=== PATIENT | male | born 1965 | race Caucasian/White ===

== ENCOUNTER 2025-02-02 00:13 | Day surgery (SDC) | payer BC, SELFPAY ==
[2025-01-19 11:43] VITALS: BMI 27.1
--- OUTSIDE RECORDS SUMMARY | 2025-02-02 00:15 | XMS_ITS | Clinical Summary ---
Author Organization [facility] Address [address] [place] [address] Care Team Providers Care Revolving Field Assembler Name Role Phone Rimma Dumont NP Primary Care Provider [phone] Allergies No known active allergies Medications ibuprofen (ADVIL,MOTRIN) 800 mg tablet Take 1 tablet (800 mg total) by mouth 3 (three) times a day as needed for pain. Take with food. 30 tablet 8 Active Additional Information Patient not taking.Reported on 08/28/2024 multivitamin with minerals tablet Take 1 tablet by mouth daily Active coenzyme Q10 10 mg capsule Take 1 capsule (10 mg total) by mouth daily Active calcium carb-magnesium carb 250-300 mg tablet Take by mouth Active Active Problems No known active problems Encounters Date Type Department Care Team Description 12/19/2024 Orders Only [facility] Primary Care at [address] [address] ProviderAdelaida MD from Last 3 Months Immunizations Immunization Administration Dates Next Due Tdap 08/28/2024 Surgical History Surgery Date Site/Laterality Comments APPENDECTOMY APPENDECTOMY 05/07/1992 - 05/06/1993 Medical History Medical History Date Comments Wears glasses Cat scratch fever Family History Medical History Relation Name Comments Diabetes Cousin Alzheimer's disease Father Colon cancer Maternal Grandfather Cancer Maternal Grandmother No Known Problems Mother Alzheimer's disease Paternal Grandfather Relation Name Status Comments Cousin Father Maternal Grandfather Maternal Grandmother Mother Alive Other paternal grandfather Paternal Grandfather Social History Tobacco Use Types Packs/Day Years Used Date Smoking Tobacco: Former Cigarettes Smokeless Tobacco: Former Alcohol Use Standard Drinks/Week Comments Yes 0 (1 standard drink = 0.6 oz pur e alcohol) PHQ-2 Answer Date Recorded PHQ-2 Total Score (If total score is 3 or more points, staff should administer the PHQ-9) 0 08/28/2024 Sex and Gender Information Value Date Recorded Sex Assigned at Not on file Legal Sex Male 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 Gender Identity Male 10/21/2024 4:53 PM CDT Sexual Orientation Straight 10/21/2024 4: 54 PM CDT Obstetrics History Last Filed Vital Signs Vital Sign Reading Time Taken Comments Blood Pressure 112/72 08/28/2024 10:32 AM CDT Pulse 69 08/28/2024 10:32 AM CDT Temperature 36.5 C (97.7 F) 08/28/2024 10:32 AM CDT Respiratory Rate 20 04/22/2024 9:06 AM TRUCK HOP Oxygen Saturation 97% 08/28/2024 10:32 AM CDT Inhaled Oxygen Concentration - - Weight 88.5 kg (195 lb) 08/28/2024 10:32 AM CDT Height 185.4 cm (6' 1) 08/28/2024 10:32 AM CDT Body Mass Index 25.73 08/28/2024 10:32 AM CDT Plan of Treatment Health Maintenance Due Date Last Done Comments Hepatitis B Screening 1983 Zoster Vaccine (1 of 2) 2015 Covid-19 Vaccine ( season) 2025 05/21/2021, 11/20/2020, 09/06/2020 Influenza Vaccine (#1) 2025 Depression Screening 08/28/2025 08/28/2024 Regular Well Visit/Exam 18-64 08/28/2025 08/28/2024 Colon Cancer Screening-Colonoscopy 05/12/2026 05/12/2016 Prostate Cancer Screening-PSA 08/28/2026 08/28/2024 DTaP/Tdap/Td Vaccine (2 - Td or Tdap) 08/28/2034 08/28/2024 Colon Cancer Screening-CT Colonography Discontinued 05/12/2016 Colon Cancer Screening-DNA Stool Discontinued 05/12/2016 Colon Cancer Screening-FIT Discontinued 05/12/2016 Colon Cancer Screening-Sigmoidoscopy Discontinued 05/12/2016 Hepatitis C Screening Completed 08/28/2024 Pneumococcal vaccine <65 Aged Out No longer eligible based on patient's age to complete this topic Procedures Procedure Name Priority Date/Time Associated Diagnosis Comments HEPATITIS C ANTIBODY Routine 08/28/2024 11:18 AM CDT Need for hepatitis C screening test PSA SCREEN Routine 08/28/2024 11:18 AM CDT Screening PSA (prostate specific antigen) HM COLONOSCOPY Routine 05/12/2016 1:17 PM TRUCK HOP from Last 3 Months or Most Recently Relevant to Health Maintenance Results * PSA screen (08/28/2024 11:18 AM CDT) PSA-Total 0.85 <=3.90 ng/mL Comment: Interpretive Data AGE SEX REFERENCE INTERVAL 0 minutes-150 years Female None 0 minutes-49 years Male None 50-59 years Male 0-3.90 60-69 years Male 0-5.40 70-79 years Male 0-6.20 80-150 years Male 0-6.20 The Hal PSA Total assay procedure was used. Results from different manufacturers or methods may not be comparable. Serial testing should be performed using the same method. Current interpretive data last revised 21. Blood 08/28/2024 11:1 8 AM CDT 08/28/2024 10:11 PM CDT Rimma Dumont SUPER[employer]ENDENT [employer] LAB BLOOD ORDERABLES Final Resul t [id number] [facility] [place] [address] * Hepatitis C antibody Blood (08/28/2024 11:18 AM CDT) Hep C Ab Nonreactive Nonreactive Comment: Interpretive Data Nonreactive: Antibodies to HCV not detected. Does NOT exclude the possibility of recent exposure to HCV. Equivocal: Equivocal for HCV antibodies. Supplemental molecular testing will be automatically performed to determine infection status in accordance with current CDC screening recommendations. Reactive: Positive for HCV antibodies. This may represent current or past HCV infection. Supplemental molecular testing will be automatically performed to determine current infection status in accordance with current CDC screening recommendations. Interpretive data was last revised on 2019. Blood 08/28/2024 11:1 8 AM CDT 08/28/2024 10:11 PM CDT Rimma Dumont NP LAB MICROBIOLOGY - GENERAL ORDER [place]ASHAY Final Result [id number] [facility] [place] [address] * HM COLONOSCOPY (05/12/2016 1:17 PM TRUCK HOP) Historical Provider HEALTH MAINTENANCE Edited Result - Final from Last 3 Months or Most Recently Relevant to Health Maintenance Insurance [employer] ACCESS CHOICE ANTHEM ACCESS CHOICE Care Teams Revolving Field Assembler Relationship Specialty Start Date End Date Rimma Dumont NP [address] [place] [address] PCP - General Family Medicine 08/28/24
[2025-02-02 06:15] VITALS: BMI 25.9
[2025-02-02 06:17] VITALS: BP 137/70; PULSE 61; RESP 18; TEMP 36.5; O2SAT 98
[2025-02-02] MEDS: LACTATED RINGERS 1,000 ML 150 ML IV CONT (06:24)
--- NOTE | 2025-02-02 07:20 | WPDANESEPPF ---
Anes - Initial Pre Proc Eval Procedure: Operation Date: 02/02/25 07:30 Proposed Procedures p Screening Colonoscopy - Alexys Trammell MD Date/Time: 02/02/25 07:20 Surgeon: Alexys Trammell MD Pre Op Diagnosis: Personal history of colon polyps, unspecified Patient Data Age: 59 Gender: M Height: 1.85 m Weight: 89 kg Last Vital Signs Temp 97.7 F 02/02/25 06:17 Pulse 61 02/02/25 06:17 Resp 18 02/02/25 06:17 BP 137/70 02/02/25 06:17 Pulse Ox 98 02/02/25 06:17 O2 Del Method Room Air 02/02/25 06:17 Allergies Allergy/AdvReac Type Severity Reaction Status Date / Time No Known Allergies Allergy Verified 02/02/25 06:14 Home Medications ?Medication ?Instructions ?Recorded ?Confirmed ?Type No Home Medications 01/19/25 01/19/25 History Patient hx anesthesia problems: none Family hx anesthesia problems: none Results Review: All pre-operative results and documents have been reviewed as part of the pre-operative evaluation. [facility] Family History Family History Mother Patient's mother is in good health Father Patient's father is in good health Social History Social History Smoking status: Never smoker Alcohol intake: current Drinks per week: 3 Substance use type: does not use Living arrangements: with family Additional living arrangements comments: with sp Anes - Eval Final PreProcedure Day of Procedure 02/02/25 07:20 Patient weight: normal Lungs: normal air movement Airway: Mallampati scale class II Neurological: alert and oriented Last oral intake: >/= 8 hours ASA classification: I Emergent: no Anesthetic plan: proceed Anesthesia type and monitoring: general GIVS and standard monitoring Results Review: All pre-operative results and documents have been reviewed as part of the pre-operative evaluation. Active manager environmental affairs, no cp or sob. Informed Consent: The patient's anesthetic plan and its attendant risks and benefits were discussed with the patient/family/POA. Questions were solicited and answers provided to the satisfaction of the patient/family/POA.
--- NOTE | 2025-02-02 07:26 | P.HP_ITS ---
History of Present Illness History of Present Illness Consent: Risks, benefits, and alternatives have been discussed and questions answered. Patient agrees to proceed with procedure. Chief complaint: Personal history of colon polyps, unspecified Narrative: Chevy Rogers is a 59 year old male here for screening colonoscopy Review of Systems Review of Systems: All systems reviewed & are unremarkable except as noted in HPI and below PMFSH Past Medical History Medical History (Updated 02/02/25 @ 07:27 by Alexys Trammell MD) Colon cancer screening Family History Family History Mother Patient's mother is in good health Father Patient's father is in good health Social History Social History Smoking status: Never smoker Alcohol intake: current Drinks per week: 3 Substance use type: does not use Living arrangements: with family Additional living arrangements comments: with sp Meds Home Medications and Allergies Home Medications ?Medication ?Instructions ?Recorded ?Confirmed ?Type No Home Medications 01/19/25 01/19/25 H istory Allergies Allergy/AdvReac Type Severity Reaction Status Date / Time No Known Allergies Allergy Verified 02/02/25 06:14 Vital Signs Vital Signs - 24 hr 02/02/25 06:17 Temperature 97.7 F Pulse Rate 61 Respiratory Rate 18 Blood Pressure 137/70 Pulse Oximetry 98 Oxygen Delivery Room Air Exam Const: General: comfortable and no acute distress HENMT: Face/Nose/Sinus: Normal nares present Eyes: General: appearance normal, both eyes and all related structures Neck: Neck: no JVD Resp: Auscultation: clear to auscultation bilaterally Cardio: Rate: regular rate Rhythm: regular rhythm GI: Inspection: non-distended GI Palp: Yes Soft to palpation Skin: General skin exam: normal color Neuro: Speech: normal speech Extrem: General: normal to inspection Psych: Mental Status: mental status grossly normal Assessment and Plan Assessment and plan (1) Colon cancer screening: Code(s): Z12.11 - Encounter for screening for malignant neoplasm of colon Status: Acute Assessment and Plan: colonoscopy
--- NOTE | 2025-02-02 07:40 | S_PTH ---
PATIENT: Chevy Rogers LOC: [facility]#:[id number] AGE/SX: 59/M ROOM: RE02/02/[address]: Alexys Trammell MD : 1965 BED: DIS: 02/02/2025 SPEC #: [id number] RECD: 02/02/25 08:02 STATUS: ROBSON REYessica #: [id number] JOY: 02/02/25 07:[address]: Alexys Trammell DEPT: [facility] Surgical RECD BY: Leisa Mcpherson ENTERED: 02/02/25 08:02 SP TYPE: Surgical OTHR DR: Rimma Dumont, [employer] Tissues: A - Colon Polypectomy Procedures: Hematoxylin and Eosin Stain Gross and Microscopic Level 4
[2025-02-02 07:41] VITALS: BP 124/70; PULSE 66; RESP 14; O2SAT 97
[2025-02-02 07:51] VITALS: BP 111/68; PULSE 66; RESP 18; O2SAT 97
[2025-02-02 08:01] VITALS: BP 122/72; PULSE 56; RESP 20; O2SAT 100
== END 2025-02-02 08:10 | disposition home or self-care (01) ==
PROVIDERS: PCP Nurse Practitioner Family; Referring Provider Nurse Practitioner Family; Visit Provider Internal Medicine Gastroenterology
PROC: 0DJD8ZZ Inspection of Lower Intestinal Tract, Via Natural or Artificial Opening Endoscopic (ICD-10-PCS; CPT 45378; principal; 2025-02-02 07:30)
DX: Z12.11 Encounter for screening for malignant neoplasm of colon (principal); D12.4 Benign neoplasm of descending colon; K57.30 Diverticulosis of large intestine without perforation or abscess without bleeding
CPT/HCPCS: 45385; 88305; J2704; J7120